=== PATIENT | female | born 1965 | race Caucasian/White ===

== ENCOUNTER → 2019-09-23 | Outpatient (CLI) | payer OTHER, SELFPAY ==
[2019-09-23 15:23] VITALS: BMI 30.6
[2019-09-29 07:09] LABS: HPV APTIMA, High Risk Negative (Negative)
== END | disposition home or self-care (01) ==
PROVIDERS: Referring Provider Obstetrics & Gynecology; Visit Provider Obstetrics & Gynecology
DX: Z12.4 Encounter for screening for malignant neoplasm of cervix (principal)
CPT/HCPCS: 87624; 88175; G0145

== ENCOUNTER → 2021-12-15 | Outpatient (CLI) | payer BC, SELFPAY ==
--- NOTE | 2021-12-15 15:58 | US_ITS ---
STUDY: ULTRASOUND OF THE FEMALE PELVIS - COMPLETE REASON FOR EXAM: Female, 56 years old patient presents for evaluation of abnormal post menopausal bleeding. LMP: 3 years ago. TECHNIQUE: Transabdominal and Transvaginal TECHNICAL QUALITY: Adequate. COMPARISON: None. FINDINGS: The uterus is retroverted and retroflexed and is in a midline position. The uterus measures 8.2 x 4.7 x 5.9 cm. Normal uterine cervix. The endometrium measures 4.8 mm in thickness, and is hyperechoic. There is no demonstrated endometrial mass. There is echogenic posterior uterine myometrial nodule measuring 1.9 x 1.4 x 1.6 cm. There is a second myometrial nodule that is hyperechoic measuring 1.2 x 1.4 x 1.2 cm. There is a third myometrial nodule measuring 1.0 x 1.2 x 0.9 cm. I.U.D. - The patient does not have an I.U.D. The right ovary is visualized. The right ovary measures 2.3 x 1.6 x 1.2 cm. There is no right ovarian cyst or ovarian mass. There is no visualized right adnexal mass or complex lesion. There is normal arterial and normal venous vascularity. The left ovary is visualized. The left ovary measures 3.9 x 4.8 x 3.0 cm. There is a large ovarian cyst measuring 4.1 x 2.8 x 3.8 cm. There is no visualized left adnexal mass or complex lesion. There is normal arterial and normal venous vascularity. There is minimal fluid in the cul-de-sac. The pre void volume of the bladder was 482.7 ml. Polycystic ovary disease: No. US/Pelvic (Non ) IMPRESSION: 1. Multiple uterine nodules probably represent leiomyomata. 2. Large left ovarian cyst. 3. Normal sonographic appearance of the right ovary. Electronically Signed: Gely Covarrubias MD at 2:15 EDT ,
--- NOTE | 2021-12-15 15:58 | US_ITS ---
STUDY: ULTRASOUND OF THE FEMALE PELVIS - COMPLETE REASON FOR EXAM: Female, 56 years old patient presents for evaluation of abnormal post menopausal bleeding. LMP: 3 years ago. TECHNIQUE: Transabdominal and Transvaginal TECHNICAL QUALITY: Adequate. COMPARISON: None. FINDINGS: The uterus is retroverted and retroflexed and is in a midline position. The uterus measures 8.2 x 4.7 x 5.9 cm. Normal uterine cervix. The endometrium measures 4.8 mm in thickness, and is hyperechoic. There is no demonstrated endometrial mass. There is echogenic posterior uterine myometrial nodule measuring 1.9 x 1.4 x 1.6 cm. There is a second myometrial nodule that is hyperechoic measuring 1.2 x 1.4 x 1.2 cm. There is a third myometrial nodule measuring 1.0 x 1.2 x 0.9 cm. I.U.D. - The patient does not have an I.U.D. The right ovary is visualized. The right ovary measures 2.3 x 1.6 x 1.2 cm. There is no right ovarian cyst or ovarian mass. There is no visualized right adnexal mass or complex lesion. There is normal arterial and normal venous vascularity. The left ovary is visualized. The left ovary measures 3.9 x 4.8 x 3.0 cm. There is a large ovarian cyst measuring 4.1 x 2.8 x 3.8 cm. There is no visualized left adnexal mass or complex lesion. There is normal arterial and normal venous vascularity. There is minimal fluid in the cul-de-sac. The pre void volume of the bladder was 482.7 ml. Polycystic ovary disease: No. US/Transvaginal Non- IMPRESSION: 1. Multiple uterine nodules probably represent leiomyomata. 2. Large left ovarian cyst. 3. Normal sonographic appearance of the right ovary. Electronically Signed: Gely Covarrubias MD at 2:15 EDT ,
== END | disposition home or self-care (01) ==
LOC: US 15:57
PROVIDERS: PCP Internal Medicine; Referring Provider Obstetrics & Gynecology; Visit Provider Obstetrics & Gynecology
DX: N95.0 Postmenopausal bleeding (principal)
CPT/HCPCS: 76830; 76856

== ENCOUNTER → 2021-12-18 | Outpatient (CLI) | payer BC, SELFPAY ==
[2021-12-19 10:34] LABS: Cancer Antigen 125 17.7 U/mL (0.0-38.1); Carcinoembryonic Antigen 0.4 ng/mL (0.0-4.7)
== END | disposition home or self-care (01) ==
PROVIDERS: PCP Internal Medicine; Visit Provider Obstetrics & Gynecology
DX: N95.0 Postmenopausal bleeding (principal); N83.209 Unspecified ovarian cyst, unspecified side
CPT/HCPCS: 36415; 82378; 86304

== ENCOUNTER → 2021-12-28 | Outpatient (CLI) | payer BC, SELFPAY ==
--- NOTE | 2021-12-28 | EMB_PTH ---
PATIENT: RICA LIND LOC: [facility] U#:[id number] AGE/SX: 56/F ROOM: RE12/28/[address]: Dr. Hortencia Padilla MD : 1965 BED: DIS: 12/28/2021 SPEC #: [id number] RECD: 12/28/21 15:40 STATUS: ALDEN REIona #: [id number] GLEN: 12/28/21 00:[address]: Hortencia Padilla DEPT: SURGICAL PATHOLOGY RECD BY: Ofelia Ramos ENTERED: 12/29/21 08:09 SP TYPE: ENDOM BX/C GALLO DR: Dr. Josseline Alcantara MD Tissues: Endometrium, NOS Procedures: Surgery Specimen Level IV HEADER OPERATION: Endometrial biopsy PRE-OP DIAGNOSIS: PMB TISSUE SUBMITTED: Endometrial biopsy MICROSCOPIC DIAGNOSIS Endometrium, biopsy: Rare strips of benign superficial proliferative endometrium. AM:olivia 12/30/2021 MICROSCOPIC DESCRIPTION Slides are reviewed. GROSS DESCRIPTION Received is one container labeled with the patient's name and not further designated. The specimen consists of multiple irregular fragments of zheng mucoid tissue that in aggregate measure 2 x 0.5 x 01 cm. The specimen is totally submitted in one cassette. / SJ:olivia 12/29/2021 TC:5 CPT: 36069
== END | disposition home or self-care (01) ==
LOC: LABSPEC 15:54
PROVIDERS: PCP Internal Medicine; Visit Provider Obstetrics & Gynecology
DX: N95.0 Postmenopausal bleeding (principal)
CPT/HCPCS: 88305

== ENCOUNTER 2022-02-10 15:52 | Outpatient (CLI) | payer BC, SELFPAY ==
--- NOTE | 2022-02-10 15:57 | US_ITS ---
EXAM: US PELVIS TRANSABDOMINAL AND TRANSVAGINAL, COMPLETE CLINICAL INDICATION: CYST FOLLO TECHNIQUE: Transabdominal and transvaginal pelvic ultrasound was performed with grayscale and color Doppler imaging. Transvaginal imaging was used for better evaluation of the endometrium and adnexa. This report was created using [employer] report generation technology. COMPARISON: December 15, 2001. FINDINGS: UTERUS/CERVIX: Fibroids are again visualized in the uterus which measures 7.8 x 5.5 x 3.9 cm with an endometrial complex thickness of 4.8 mm. Specifically, 3 fibroids were measured, the largest two measure up to 1.6 cm. No IUD identified. RIGHT OVARY: Right ovary is nonvisualized, potentially due to overlying bowel gas and positioning. No adnexal masses. LEFT OVARY: Previous left ovarian cystic lesion is no longer visualized. Left ovary measures 2.3 x 1.0 x 1.0 cm with normal blood flow to it. FREE FLUID: Small amount of free pelvic fluid is nonspecific. BLADDER: Urinary bladder measures 457 mL. No wall thickening or intraluminal abnormalities. US/Pelvic (Non ) IMPRESSION: 1. Left ovarian cystic lesion is no longer visualized. 2. Redemonstration of fibroid uterus. 3. No other abnormalities. Electronically Signed: Juvencio Medina MD at 18:19 EST ,
== END 2022-02-10 23:59 | disposition home or self-care (01) ==
LOC: US 15:55
PROVIDERS: PCP Internal Medicine; Referring Provider Obstetrics & Gynecology; Visit Provider Obstetrics & Gynecology
DX: N95.0 Postmenopausal bleeding (principal); N83.209 Unspecified ovarian cyst, unspecified side
CPT/HCPCS: 76830; 76856

== ENCOUNTER → 2022-08-05 | Outpatient (CLI) | payer BC, SELFPAY ==
--- NOTE | 2022-08-05 07:37 | BI_ITS ---
MAMMOGRAPHY - BILATERAL SCREENING REASON FOR EXAM: Female, 56 years old. Routine annual screening examination. PERTINENT HISTORY: Mother with breast cancer. Remote left stereotactic breast biopsy. TECHNIQUE: Digital bilateral breast yasmine (3D mammographic acquisition) in the CC and MLO projections. 2-D mediolateral oblique (MLO) and craniocaudad (CC) views of both breasts were obtained. CAD: Full Field Digital Mammography with Computer Added Detection was performed. COMPARISON: Comparison is made with prior outside examination dated February 15, 2017. FINDINGS: Breast Composition: There are scattered areas of fibroglandular density. There are no dominant masses or suspicious calcifications. A tissue clip marker is seen in the upper lateral deep aspect of the left breast. Stable small benign-appearing bilateral axillary lymph nodes. No other significant abnormalities are identified. BI/SCRN MAMM (CAD)W/YASMINE BILAT IMPRESSION: Stable bilateral screening mammogram. Yearly follow-up mammogram recommended. (A) ASSESSMENT CATEGORY: BIRADS Category 2: Benign. A letter regarding these results will be sent to the patient by the facility within 30 days. Approximately 10% of breast cancers are not detected by mammography. A normal mammogram should not delay biopsy of a clinically suspicious abnormality. [id number] Electronically Signed: Alexis Cline MD at 9:40 EDT ,
== END | disposition home or self-care (01) ==
LOC: OPBI 07:36
PROVIDERS: PCP Internal Medicine; Referring Provider Obstetrics & Gynecology; Visit Provider Obstetrics & Gynecology
DX: Z12.31 Encounter for screening mammogram for malignant neoplasm of breast (principal); Z80.3 Family history of malignant neoplasm of breast
CPT/HCPCS: 77063; 77067

== ENCOUNTER → 2023-08-11 | Outpatient (CLI) | payer BC, SELFPAY ==
--- NOTE | 2023-08-11 15:31 | BI_ITS ---
MAMMOGRAPHY - BILATERAL SCREENING 3-D TOMOSYNTHESIS REASON FOR EXAM: Female, 57 years old. screening PERTINENT HISTORY: No significant family history. TECHNIQUE: 2-D mammograms and 3-D Tomosynthesis of the breast (s) were performed. CAD was performed. COMPARISON: 08/05/2022 FINDINGS: The breast composition is composed of scattered fibroglandular density. Scattered benign calcifications are seen. No dense spiculated masses or suspicious microcalcifications are identified. No architectural distortion is identified. There is no skin thickening or retraction. There has been no significant change since the prior study. BI/SCRN MAMM (CAD)W/YASMINE BILAT IMPRESSION: No mammographic signs of malignancy. Routine yearly mammograms recommended. ASSESSMENT CATEGORY: BIRADS Category 1: Negative. A letter regarding these results will be sent to the patient by the facility within 30 days. FOLLOW UP RECOMMENDATION: Yearly follow up mammogram recommended. (A) Approximately 10% of breast cancers are not detected by mammography. A normal mammogram should not delay biopsy of a clinically suspicious abnormality. Electronically Signed: Luis Landin MD at 9:48 EDT ,
== END | disposition home or self-care (01) ==
LOC: OPBI 15:30
PROVIDERS: PCP Internal Medicine; Referring Provider Obstetrics & Gynecology; Visit Provider Obstetrics & Gynecology
DX: Z12.31 Encounter for screening mammogram for malignant neoplasm of breast (principal)
CPT/HCPCS: 77063; 77067

== ENCOUNTER → 2024-08-12 | Outpatient (CLI) | payer OTHER, SELFPAY ==
--- NOTE | 2024-08-12 15:28 | BI_ITS ---
EXAM: SCRN MAMM (CAD)W/YASMINE BILAT DATE: 08/12/2024 CLINICAL HISTORY: F, Age 58 y/o , SCREENING MAMMOGRAM BREAST CANCER RISK ASSESSMENT: Has not been calculated. TECHNIQUE: Bilateral screening digital breast tomosynthesis with 2D and 3D images. Computer aided detection. COMPARISON: Prior exam(s) dated 08/11/2023 and 08/05/2002 FINDINGS: TISSUE DENSITY: The breast tissue is composed of scattered area of fibroglandular density. Bilateral Breast Mammographic Findings: There are no suspicious masses, suspicious cluster of microcalcifications, architectural distortion or secondary signs of malignancy identified in either breast. A stable 5 mm partially obscured isodense mass is seen in the superior outer, far posterior aspect of the right breast. A radiopaque clip is seen in the superior outer aspect of the left breast. The biopsy was benign. Post biopsy site is stable. A small 3 mm nodular masslike density is seen in the superior medial, far anterior aspect of the left breast. BI/SCRN MAMM (CAD)W/YASMINE BILAT IMPRESSION: OVERALL FINAL ASSESSMENT: BIRADS 2 BENIGN FINDING RECOMMENDATION: Routine annual follow-up in 1 Year A letter with findings and recommendations will be mailed to the patient. Reading Location: [id number]
== END | disposition home or self-care (01) ==
LOC: OPBI 15:26
PROVIDERS: PCP Internal Medicine; Referring Provider Obstetrics & Gynecology; Visit Provider Obstetrics & Gynecology
DX: Z12.31 Encounter for screening mammogram for malignant neoplasm of breast (principal)
CPT/HCPCS: 77063; 77067

== ENCOUNTER → 2024-10-14 | Outpatient (CLI) | payer OTHER, SELFPAY ==
[2024-10-18 10:08] LABS: HPV APTIMA, High Risk Negative (Negative)
== END | disposition home or self-care (01) ==
LOC: LABSPEC 16:28
PROVIDERS: PCP Internal Medicine; Visit Provider Obstetrics & Gynecology
DX: Z12.4 Encounter for screening for malignant neoplasm of cervix (principal)
CPT/HCPCS: 87624; 88175; G0145